=== PATIENT | female | born 1995 | race Two or more races ===

== ENCOUNTER 2022-02-25 12:28 | Emergency (ER) | payer SELFPAY ==
[~2022-02-25] VITALS: Ht 160 cm; Wt 68.0 kg
[2022-02-25 12:35] VITALS: BP 147/87
[2022-02-25] MEDS ORDERED: TETRACAINE HCL 0.5% OPTH(EYE) SOLN 4ML EACHEYE ONE (13:15)
[2022-02-25] MEDS ORDERED: FLUORESCEIN SOD OPTH TEST STRIP OP ONE (13:15)
[2022-02-25] MEDS ORDERED: TOBR0.3S OP ×2 (13:36→14:23)
== END 2022-02-25 13:48 | disposition home or self-care (01) ==
LOC: ER 12:28
DX: S05.01XA Injury of conjunctiva and corneal abrasion without foreign body, right eye, initial encounter (principal); S05.02XA Injury of conjunctiva and corneal abrasion without foreign body, left eye, initial encounter; X58.XXXA Exposure to other specified factors, initial encounter; Y93.89 Activity, other specified; Y92.89 Other specified places as the place of occurrence of the external cause; Y99.8 Other external cause status